=== PATIENT | female | born 1935 | race African-American/Black ===

== ENCOUNTER 2021-08-16 14:42 | Observation (INO) ==
[2021-08-16] MEDS ORDERED: Acetaminophen 325 MG TABLET PO PRN (19:40)
[2021-08-16] MEDS ORDERED: Naloxone 0.4 MG/ML INJ IVP PRN (19:40)
[2021-08-16] MEDS ORDERED: Ondansetron 4 MG/2 ML VIAL IVP PRN (19:40)
[2021-08-16] MEDS ORDERED: Ipratropium/Albuterol Neb 3 ML IH PRN (19:44)
[2021-08-16] MEDS: Magnesium Oxide 400 MG TABLET PO SCH (22:18)
[2021-08-16] MEDS: Gabapentin 300 MG CAPSULE PO SCH (22:19)
[2021-08-16] MEDS: Sucralfate 1 GM TABLET PO SCH (22:20)
[2021-08-17] MEDS: Budesonide/Formoterol 160/4.5 1 PUFF INH IH SCH ×2 (00:44→10:21)
[2021-08-17 05:33] VITALS: RESP 16; O2SAT 96
[2021-08-17 05:51] LABS: Hematocrit 32.8 % (35.3-44.9); Hemoglobin 9.7 g/dL (11.5-15.4); Mean Corpuscular HGB Conc 29.6 g/dL (31.6-35.5); Mean Corpuscular Hemoglobin 22.9 pg (28.0-33.3); Mean Corpuscular Volume 77.5 fL (83.0-100.0); Mean Platelet Volume 9.9 fL (9.4-12.4); Platelet Count 328 K/mcL (140-400); Red Blood Count 4.23 M/mcL (3.82-4.97); Red Cell Distribution Width 19.9 % (11.5-14.5); White Blood Count 8.8 K/mcL (4.3-11.1)
[2021-08-17 06:02] LABS: BUN/Creatinine Ratio 11 (6-26); Blood Urea Nitrogen 7 mg/dL (8-23); Calcium 9.5 mg/dL (8.6-10.3); Carbon Dioxide 35 mEq/L (23-29); Chloride 99 mEq/L (98-107); Chol/HDL Ratio 2.7 (0-4.9); Cholesterol 139 mg/dL (< 200); Glucose 99 mg/dL (70-105); HDL Cholesterol 51 mg/dL (40-59); LDL Cholesterol,Calculated 69 mg/dL (< 100); Magnesium 1.6 mg/dL (1.6-2.6); Osmolality,Calculated 292 (280-300); Potassium 2.8 mEq/L (3.5-5.1); Sodium 142 mEq/L (136-145); Triglycerides 95 mg/dL (< 150); eGFR For African Americans > 60 (> 60); eGFR For Non-African Americans > 60 (> 60)
[2021-08-17] MEDS: Gabapentin 300 MG CAPSULE PO SCH (08:50)
[2021-08-17] MEDS: Magnesium Oxide 400 MG TABLET PO SCH (08:50)
[2021-08-17] MEDS: Sucralfate 1 GM TABLET PO SCH ×2 (08:50→12:24)
[2021-08-17] MEDS ORDERED: *HR* LORazepam 0.5 MG TABLET PO SCH (09:00)
[2021-08-17] MEDS ORDERED: Multivit/Ca/Min/Fe/FA 1 TAB TABLET PO SCH (09:00)
[2021-08-17] MEDS ORDERED: Colchicine 0.6 MG TABLET PO SCH (09:00)
[2021-08-17] MEDS ORDERED: polyethylene glycoL 3350 17 GM POWD.PACK PO SCH (09:00)
[2021-08-17] MEDS ORDERED: Metoprolol XL (24 HR) Succ 50 MG TAB.ER.24H PO SCH (09:00)
[2021-08-17] MEDS ORDERED: Cholecalciferol (D-3) 1,000 UNIT (25MCG) TABLET PO SCH (09:00)
[2021-08-17 16:28] VITALS: BP 165/77; PULSE 84; TEMP 98.4
== END 2021-08-17 15:30 ==
LOC: INPGRE
PROVIDERS: ADMIT Family Medicine; ATTEND Family Medicine